=== PATIENT | female | born 1985 | race Caucasian/White ===

== ENCOUNTER 2016-07-15 20:09 | Emergency (ER) | payer MEDICAID, OTHER ==
[~2016-07-15] VITALS: Ht 165.1 cm; Wt 105.5 kg
[~2016-07-15 20:09] MED LIST: 1-ME1LIQ PO; XANA0.5T PO; ZEGE20CA PO; ZYRT10TA3 PO
[2016-07-15 20:14] VITALS: BP 155/116; PULSE 115; RESP 19; TEMP 98.9; O2SAT 100
[2016-07-15] MEDS ORDERED: CETI5TAB2 PO (20:35)
[2016-07-15] MEDS ORDERED: FLUT1SPR5 EACH NARE (20:35)
[2016-07-15] MEDS ORDERED: IBUP400T20 PO (20:35)
[2016-07-15] MEDS ORDERED: AMLO2.5T PO (20:35)
[2016-07-15] MEDS ORDERED: [UNRECOGNIZED DRUG - CODE] (20:35)
--- NOTE | 2016-07-15 20:43 | PD ---
HPI Chief Complaint: Abdominal Pain Time Seen by Provider: 20:35 Travel History International Travel<30 days: No Contact w/Intl Traveler<30days: No Traveled to known affect area: No History of Present Illness HPI This 31-year-old female complaining of possible UTI. She says she been having some left flank pain for several days. Her urine has been dark and cloudy. She has had some chills and sweats. She has had some vomiting the last couple of days. She was vomiting this morning. She had gastric bypass in 2011 and has had over 100 pound weight loss. She has a history of hypertension. She has had urinary tract infection in the past. PFSH Past Medical History Bipolar Disorder: Yes Cancer: No Cardiovascular Problems: Yes (HTN) High Cholesterol: Yes Diabetes: No Diminished Hearing: No Endocrine: No Genitourinary: No Hepatitis: No Hiatal Hernia: No Hypertension: Yes Immune Disorder: No Musculoskeletal: Yes (ARTHRITIS BACK) Neurologic: Yes (BI-POLAR) Psychiatric: No Reproductive: No Respiratory: No Immunizations Current: Yes Thyroid Disease: No ?: Not LMP: END OF JUNE Menopausal: Yes Past Surgical History Abdominal Surgery: Yes (GASTRIC BY PASS) AICD: No Joint Replacement: No Pacemaker: No Social History Alcohol Use: Yes (BOTTLE WINE NIGHTLY) Tobacco Use: No (/2 PPD) Substance Use: No Allergies-Medications (Allergen,Severity, Reaction): Coded Allergies: Penicillin (Verified Allergy, Severe, Anaphylaxis, 07/15/16) Sulfa (Verified Allergy, Severe, Anaphylaxis, 07/15/16) Erythromycin (Verified Allergy, Intermediate, RASH/HIVES, 07/15/16) Latex (Verified Allergy, Unknown, CONTACT DERMATIATIS, 07/15/16) Uncoded Allergies: MYCINS (Allergy, Intermediate, Nausea/Vomiting, 03/04/10) Reported Meds & Prescriptions Reported Meds & Active Scripts Active Zofran Odt (Ondansetron Odt) 4 Mg Tab 4 Mg SL Q6HR PRN Percocet (Oxycodone-Acetaminophen) 7.5-325 mg Tab 1 Tab PO Q4H PRN Cipro (Ciprofloxacin HCl) 500 Mg Tab 500 Mg PO BID 10 Days Reported Azo Urinary Pain Relief (Phenazopyridine HCl) 95 Mg Tab Flonase Nasal [place] (Fluticasone Nasal [place]) 50 Mcg/Act [place] 50 Mcg EACH NARE BID Cetirizine (Cetirizine HCl) 5 Mg Tab 5 Mg PO DAILY Ibuprofen 400 Mg Tab 400 Mg PO Q4H PRN Amlodipine (Amlodipine Besylate) 2.5 Mg Tab 2.5 Mg PO DAILY Review of Systems General / Constitutional: Positive: Chills Eyes: No: Diploplia, Blurred Vision HENT: No: Headaches, Vertigo Cardiovascular: No: Chest Pain or Discomfort, Palpitations Respiratory: No: Cough, Shortness of Breath Gastrointestinal: Positive: Nausea, Vomiting Genitourinary: Positive: Frequency, Flank Pain, No: Urgency Musculoskeletal: No: Myalgias, Arthralgias Skin: No Rash, No Itching Neurologic: No: Weakness, Dizziness Psychiatric: No: Anxiety, Depression Hematologic/Lymphatic: No: Easy Bruising Physical Exam Narrative GENERAL: Well-developed female SKIN: Focused skin assessment warm/dry. HEAD: Atraumatic. Normocephalic. EYES: Pupils equal and round. No scleral icterus. No injection or drainage. ENT: No nasal bleeding or discharge. Mucous membranes pink and moist. NECK: Trachea midline. No JVD. CARDIOVASCULAR: Regular rate and rhythm. No murmur appreciated. RESPIRATORY: No accessory muscle use. Clear to auscultation. Breath sounds equal bilaterally. GASTROINTESTINAL: Abdomen soft, non-tender, nondistended. Hepatic and splenic margins not palpable. There is some left flank tenderness MUSCULOSKELETAL: No obvious deformities. No clubbing. No cyanosis. No edema. NEUROLOGICAL: Awake and alert. No obvious cranial nerve deficits. Motor grossly within normal limits. Normal speech. PSYCHIATRIC: Appropriate mood and affect; insight and judgment normal. Data Data Last Documented VS Vital Signs Date Time Temp Pulse Resp B/P Pulse Ox O2 Delivery O2 Flow Rate FiO2 07/15/16 20:14 98.9 115 19 155/116 100 Orders Complete Blood Count With Diff (07/15/16 20:35) Comprehensive Metabolic Panel (07/15/16 20:35) Urinalysis - C+S If Indicated (07/15/16 20:35) Sodium Chlor 0.9% 1000 Ml Inj (Ns 1000 M (07/15/16 20:45) Hydromorphone Pf Inj (Dilaudid Pf Inj) (07/15/16 20:45) Ondansetron Inj (Zofran Inj) (07/15/16 20:45) Ceftriaxone Inj (Rocephin Inj) (07/15/16 21:15) Urine Culture (07/15/16 20:48) Labs Laboratory Tests Test 07/15/16 20:48 White Blood Count 13.8 TH/MM3 Red Blood Count 4.89 MIL/MM3 Hemoglobin 14.6 GM/DL Hematocrit 46.1 % Mean Corpuscular Volume 94.3 FL Mean Corpuscular Hemoglobin 29.9 PG Mean Corpuscular Hemoglobin 31.7 % Concent Red Cell Distribution Width 17.7 % Platelet Count 290 TH/MM3 Mean Platelet Volume 7.9 FL Neutrophils (%) (Auto) 81.4 % Lymphocytes (%) (Auto) 9.6 % Monocytes (%) (Auto) 6.9 % Eosinophils (%) (Auto) 0.7 % Basophils (%) (Auto) 1.4 % Neutrophils # (Auto) 11.2 TH/MM3 Lymphocytes # (Auto) 1.3 TH/MM3 Monocytes # (Auto) 1.0 TH/MM3 Eosinophils # (Auto) 0.1 TH/MM3 Basophils # (Auto) 0.2 TH/MM3 CBC Comment DIFF FINAL Differential Comment Urine Color YELLOW Urine Turbidity CLOUDY Urine pH 6.0 Urine Specific [place] 1.009 Urine Protein 30 mg/dL Urine Glucose (UA) NEG mg/dL Urine Ketones NEG mg/dL Urine Occult Blood LARGE Urine Nitrite POS Urine Bilirubin NEG Urine Leukocyte Esterase MOD Urine RBC 4-9 /hpf Urine WBC INNUM /hpf Urine Squamous Epithelial 0-5 /hpf Cells Urine Trichomonas PRESENT Microscopic Urinalysis Comment CULTURE INDICATED Sodium Level 139 MEQ/L Potassium Level 3.6 MEQ/L Chloride Level 103 MEQ/L Carbon Dioxide Level 27.2 MEQ/L Anion Gap 9 MEQ/L Blood Urea Nitrogen 6 MG/DL Creatinine 0.70 MG/DL Estimat Glomerular Filtration 96 ML/MIN Rate Random Glucose 92 MG/DL Calcium Level 9.0 MG/DL Total Bilirubin 0.4 MG/DL Aspartate Amino Transf 50 U/L (AST/SGOT) Alanine Aminotransferase 77 U/L (ALT/SGPT) Alkaline Phosphatase 105 U/L Total Protein 7.7 GM/DL Albumin 3.5 GM/DL [facility] Medical Decision Making Medical Screen Exam Complete: Yes Emergency Medical Condition: Yes Medical Record Reviewed: Yes Differential Diagnosis Differential includes UTI, renal colic, gastroenteritis Narrative Course White count is elevated at 13.8. Urinalysis shows innumerable white cells were 9 red cells. This is most consistent with a urinary tract infection, pyelonephritis. She has been given an initial dose of Rocephin and will be released with prescription for Percocet, Zofran and Cipro Diagnosis Primary Impression: Urinary tract infection Qualified Code: N10 - Acute pyelonephritis Scripts Ondansetron Odt (Zofran Odt)4 Mg Tab4 Mg SL Q6HR PRN (Nausea/Vomiting) #10 TAB Ref 0 Prov:Bobby Sweet MD 07/15/16 Oxycodone-Acetaminophen (Percocet)7.5-325 mg Tab1 Tab PO Q4H PRN (PAIN) #15 TAB Ref 0 Prov:Bobby Sweet MD 07/15/16 Ciprofloxacin (Cipro)500 Mg [id number] Mg PO BID 10 Days Ref 0 Prov:Bobby Sweet MD 07/15/16 Disposition: 01 DISCHARGE HOME Condition: Stable Bobby Sweet MD Jul 15, 2016 20:43
[2016-07-15] MEDS ORDERED: HYDROmorphone HCL PF 1 MG/ML VIAL IV PUSH ONE (20:45)
[2016-07-15] MEDS ORDERED: ONDANSETRON HCL 4 MG/2 ML VIAL IV PUSH ONE (20:45)
[2016-07-15] MEDS ORDERED: SODIUM CHLOR 0.9% 1000 ML INJ 1,000 ML IV ONE ×2 (20:45→23:15)
[2016-07-15 20:56] LABS: AUTOMATED NEUTROPHIL # 11.2 TH/MM3 (1.8-7.7); BASOPHIL # 0.2 TH/MM3 (0-0.2); BASOPHIL % 1.4 % (0.0-2.0); EOSINOPHIL # 0.1 TH/MM3 (0-0.4); EOSINOPHIL % 0.7 % (0.0-4.0); HEMATOCRIT 46.1 % (35.0-46.0); LYMPH % 9.6 % (9.0-44.0); LYMPHOCYTE # 1.3 TH/MM3 (1.0-4.8); MEAN CELL VOLUME 94.3 FL (80.0-100.0); MEAN CORPUSCULAR HEMOGLOBIN 29.9 PG (27.0-34.0); MEAN CORPUSCULAR HGB CONC 31.7 % (32.0-36.0); MONO % 6.9 % (0.0-8.0); NEUT % 81.4 % (16.0-70.0); PLATELET COUNT 290 TH/MM3 (150-450); RED BLOOD COUNT 4.89 MIL/MM3 (4.00-5.30); RED CELL DISTRIBUTION WIDTH 17.7 % (11.6-17.2); WHITE BLOOD COUNT 13.8 TH/MM3 (4.0-11.0)
[2016-07-15 20:57] LABS: BLOOD, URINE LARGE (NEG); GLUCOSE,URINE NEG (NEG); KETONE, URINE NEG (NEG)
[2016-07-15 21:01] LABS: NITRITE,URINE POS (NEG)
[2016-07-15 21:03] VITALS: BP 152/98; PULSE 102; RESP 17; O2SAT 96
[2016-07-15 21:04] LABS: HEMO FLAGS DIFF FINAL
[2016-07-15 21:05] LABS: CHLORIDE 103 MEQ/L (98-107); POTASSIUM 3.6 MEQ/L (3.5-5.1); SODIUM (NA) 139 MEQ/L (136-145)
[2016-07-15 21:09] LABS: ANION GAP 9 MEQ/L (5-15); BICARBONATE 27.2 MEQ/L (21.0-32.0); BLOOD UREA NITROGEN 6 MG/DL (7-18); URINE COLOR YELLOW (YELLW/STRAW)
[2016-07-15 21:11] LABS: SQUAMOUS EPITHELIAL CELL URINE 0-5 /hpf (0-5); WBC, URINE INNUM /hpf (0-5)
[2016-07-15 21:12] LABS: ALT (GPT) 77 U/L (10-53); AST (GOT) 50 U/L (15-37); COMMENT (UR) CULTURE INDICATED; CULTURE IF INDICATED CULTURE INDICATED; GLOMERULAR FILTRATION RATE 96 ML/MIN (>89)
[2016-07-15 21:13] LABS: TOTAL BILIRUBIN ADULT 0.4 MG/DL (0.2-1.0)
[2016-07-15 21:15] LABS: ALKALINE PHOSPHATASE 105 U/L (45-117)
[2016-07-15] MEDS ORDERED: cefTRIAXone INJ 1,000 MG in SODIUM CHLORIDE 0.9% INJ 100 ML IV ONE (21:15)
[2016-07-15] MEDS ORDERED: PERC7.5T13 PO (21:23)
[2016-07-15] MEDS ORDERED: ZOFR4TAB3 SL (21:23)
[2016-07-15] MEDS ORDERED: CIPR-9 PO (21:23)
[2016-07-15 21:50] VITALS: BP 162/103; PULSE 103; RESP 18; O2SAT 96
[2016-07-15 22:40] VITALS: TEMP 100.4
[2016-07-15] MEDS ORDERED: ACETAMINOPHEN 500 MG CPLT PO ONE (22:45)
[2016-07-15 23:05] VITALS: TEMP 102.3
[2016-07-15] MEDS ORDERED: IBUPROFEN 600 MG TAB PO ONE (23:15)
[2016-07-15 23:40] VITALS: BP 148/89; PULSE 105; RESP 18; TEMP 100.2; O2SAT 97
== END 2016-07-15 23:53 | disposition home or self-care (01) ==
LOC: PHED 20:09
DX: N39.0 Urinary tract infection, site not specified (principal); I10 Essential (primary) hypertension; E78.00 Pure hypercholesterolemia, unspecified; F17.210 Nicotine dependence, cigarettes, uncomplicated; R11.2 Nausea with vomiting, unspecified; B96.20 Unspecified Escherichia coli [E. coli] as the cause of diseases classified elsewhere
CPT/HCPCS: 80053; 81001; 85025; 87077; 87086; 87186; 96361; 96365; 96375; 99284; J0696; J1170; J2405; J7030

== ENCOUNTER 2016-08-11 11:02 | Emergency (ER) | payer MEDICAID ==
[~2016-08-11] VITALS: Ht 165.1 cm; Wt 101.7 kg
[~2016-08-11 11:02] MED LIST changes: -1-ME1LIQ PO; +AMLO2.5T PO; +CETI5TAB2 PO; +CIPR-9 PO; +FLUT1SPR5 EACH NARE; +IBUP400T20 PO; +PERC7.5T13 PO; -XANA0.5T PO; -ZEGE20CA PO; +ZOFR4TAB3 SL; -ZYRT10TA3 PO; +[UNRECOGNIZED DRUG - CODE]
[2016-08-11 11:06] VITALS: BP 147/106; PULSE 101; RESP 18; TEMP 98.3; O2SAT 98
[2016-08-11] MEDS ORDERED: ZEGE20CA4 PO (11:19)
[2016-08-11] MEDS ORDERED: CIPR-9 PO (11:45)
--- NOTE | 2016-08-11 11:49 | PD ---
HPI Chief Complaint: Skin Problem Time Seen by Provider: 11:20 Travel History International Travel<30 days: No Contact w/Intl Traveler<30days: No Traveled to known affect area: No History of Present Illness HPI 31-year-old female presents emergency department for evaluation of abscess on right hip 1 week. Patient reports the area started as a small erythematous pustule and has progressively got larger over the last week. She reports pain at the site, nonradiating, no alleviating or exacerbating factors. Severity 4- 10. She denies fever or chills. She reports history of abscesses in the past. Patient has multiple allergies to antibiotics and reports she's been prescribed Cipro in the past to treat them. PFSH Past Medical History Bipolar Disorder: Yes Depression: Yes Cancer: No Cardiovascular Problems: Yes (HTN) High Cholesterol: Yes Diabetes: Yes Patient Takes Glucophage: No Diminished Hearing: No Endocrine: No Genitourinary: No Hepatitis: No Hiatal Hernia: No Hypertension: Yes Immune Disorder: No Musculoskeletal: Yes (ARTHRITIS BACK) Neurologic: Yes (BI-POLAR) Psychiatric: No Reproductive: No Respiratory: No Immunizations Current: Yes Thyroid Disease: No ?: Not Menopausal: Yes Tubal Ligation: Yes Past Surgical History Abdominal Surgery: Yes (GASTRIC BY PASS) AICD: No Joint Replacement: No Pacemaker: No Other Surgery: Yes Social History Alcohol Use: Yes (4 double vodkas every night) Tobacco Use: No (1/2 PPD) Substance Use: No Allergies-Medications (Allergen,Severity, Reaction): Coded Allergies: Penicillin (Verified Allergy, Severe, Anaphylaxis, 07/15/16) Sulfa (Verified Allergy, Severe, Anaphylaxis, 07/15/16) Erythromycin (Verified Allergy, Intermediate, RASH/HIVES, 07/15/16) Latex (Verified Allergy, Unknown, CONTACT DERMATIATIS, 07/15/16) Uncoded Allergies: MYCINS (Allergy, Intermediate, Nausea/Vomiting, 03/04/10) Reported Meds & Prescriptions Reported Meds & Active Scripts Active Cipro (Ciprofloxacin HCl) 500 Mg Tab 500 Mg PO BID Reported Zegerid (Omeprazole-Sodium Bicarbonate) 20-1,100 Mg Cap 1 Cap PO DAILY Flonase Nasal [place] (Fluticasone Nasal [place]) 50 Mcg/Act [place] 50 Mcg EACH NARE BID Cetirizine (Cetirizine HCl) 5 Mg Tab 5 Mg PO DAILY Ibuprofen 400 Mg Tab 400 Mg PO Q4H PRN Amlodipine (Amlodipine Besylate) 2.5 Mg Tab 2.5 Mg PO DAILY Review of Systems Except as stated in HPI: all other systems reviewed are Neg General / Constitutional: No: Fever Eyes: No: Visual changes HENT: No: Headaches Cardiovascular: No: Chest Pain or Discomfort Respiratory: No: Shortness of Breath Gastrointestinal: No: Abdominal Pain Physical Exam Narrative GENERAL: Well-nourished, well-developed patient. SKIN: Focused skin assessment warm/dry. Small erythematous fluctuant abscess to the right posterior/lateral torso. There is no surrounding cellulitis. No drainage. HEAD: Normocephalic. EYES: No scleral icterus. No injection or drainage. NECK: Supple, trachea midline. No JVD or lymphadenopathy. CARDIOVASCULAR: Regular rate and rhythm without murmurs, gallops, or rubs. RESPIRATORY: Breath sounds equal bilaterally. No accessory muscle use. GASTROINTESTINAL: Abdomen soft, non-tender, nondistended. MUSCULOSKELETAL: No cyanosis, or edema. BACK: Nontender without obvious deformity. No CVA tenderness. Data Data Last Documented VS Vital Signs Date Time Temp Pulse Resp B/P Pulse Ox O2 Delivery O2 Flow Rate FiO2 08/11/16 11:06 98.3 101 18 147/106 98 MDM Medical Decision Making Medical Screen Exam Complete: Yes Emergency Medical Condition: Yes Differential Diagnosis Abscess, cellulitis, infected insect bite Narrative Course 31-year-old female presents emergency Department with evaluation of possible abscess on right hip 1 week. Patient reports a history of abscesses in the past. She denies fever or chills. On exam she has small fluctuant abscess in the right lower/lateral torso without surrounding cellulitis. Incision and drainage was performed. Patient tolerated procedure well. Given patient's multiple allergies to penicillins, Bactrim, clindamycin patient will be put on Cipro. Return precautions discussed. Patient verbalized understanding. She will have the wound rechecked in 1-2 days. Procedures Procedure Narrative Incision and drainage of abscess. Area was prepped with Betadine. Infiltrated with 1% lidocaine with epi. Incised with #11 blade. Abscess probed to break up loculations. A small amount of purulent drainage expressed. Patient tolerated procedure well. Sterile dressing applied to abscess. Diagnosis Primary Impression: Abscess Referrals: Primary Care Physician Scripts Ciprofloxacin (Cipro)500 Mg [id number] Mg PO BID #14 TAB Ref 0 Prov:Khushbu Duval 08/11/16 Disposition: 01 DISCHARGE HOME Condition: Stable Khushbu Duval Aug 11, 2016 11:49
== END 2016-08-11 11:54 | disposition home or self-care (01) ==
LOC: PHEFT 11:02
DX: L02.219 Cutaneous abscess of trunk, unspecified (principal); E11.9 Type 2 diabetes mellitus without complications; I10 Essential (primary) hypertension; E78.00 Pure hypercholesterolemia, unspecified; Z87.39 Personal history of other diseases of the musculoskeletal system and connective tissue; Z86.59 Personal history of other mental and behavioral disorders; Z86.79 Personal history of other diseases of the circulatory system
CPT/HCPCS: 10060

== ENCOUNTER 2017-01-19 17:11 | Emergency (ER) | payer MEDICAID ==
[~2017-01-19] VITALS: Ht 165.1 cm; Wt 102.4 kg
[~2017-01-19 17:11] MED LIST changes: +IBUP1TAB5 PO; -IBUP400T20 PO; -PERC7.5T13 PO; +ZEGE20CA4 PO; -ZOFR4TAB3 SL; -[UNRECOGNIZED DRUG - CODE]
[2017-01-19 17:15] VITALS: BP 178/113; PULSE 106; RESP 16; TEMP 98.5; O2SAT 100
[2017-01-19] MEDS ORDERED: CYCL10TA PO (18:01)
[2017-01-19] MEDS ORDERED: IBUP1TAB7 PO (18:01)
[2017-01-19] MEDS ORDERED: BENZ100 PO (18:01)
--- NOTE | 2017-01-19 18:02 | PD ---
HPI Chief Complaint: Cold / Flu Symptoms Time Seen by Provider: 17:50 Travel History International Travel<30 days: No Contact w/Intl Traveler<30days: No Traveled to known affect area: No History of Present Illness HPI 31-year-old female here for evaluation of nasal congestion, cough, sore throat 1 week. She is here with her daughter, also a patient, who has similar symptoms. She is also reporting that she fell 2 days ago after slipping on the floor hitting her head. No LOC. She denies headache, neck pain, visual changes , nausea or vomiting. Symptom severity is mild. No aggravating or alleviating factors. PFSH Past Medical History Hx Anticoagulant Therapy: No Bipolar Disorder: Yes Depression: Yes Cancer: No Cardiovascular Problems: Yes (HTN) High Cholesterol: Yes Diabetes: No Diminished Hearing: No Endocrine: No Genitourinary: No Hepatitis: No Hiatal Hernia: No Hypertension: Yes Immune Disorder: No Musculoskeletal: Yes (ARTHRITIS BACK) Neurologic: Yes (BI-POLAR) Psychiatric: No Reproductive: No Respiratory: No Immunizations Current: Yes Thyroid Disease: No Tetanus Vaccination: < 5 Years Influenza Vaccination: No ?: Not Menopausal: Yes Tubal Ligation: Yes Past Surgical History Abdominal Surgery: Yes (GASTRIC BY PASS) AICD: No Joint Replacement: No Pacemaker: No Other Surgery: Yes Social History Alcohol Use: Yes (~2 X WEEKLY) Tobacco Use: No (1/2 PPD) Substance Use: No Allergies-Medications (Allergen,Severity, Reaction): Coded Allergies: Sulfa (Sulfonamide Antibiotics) (Unverified Allergy, Severe, Anaphylaxis, 01/19/17) penicillin G (Unverified Allergy, Severe, Anaphylaxis, 01/19/17) erythromycin base (Unverified Allergy, Intermediate, RASH/HIVES, 01/19/17) latex (Unverified Allergy, Unknown, CONTACT DERMATIATIS, 01/19/17) Uncoded Allergies: MYCINS (Allergy, Intermediate, Nausea/Vomiting, 03/04/10) Reported Meds & Prescriptions Reported Meds & Active Scripts Active Reported Cetirizine (Cetirizine HCl) 5 Mg Tab 5 Mg PO DAILY Ibuprofen 400 Mg Tab 400 Mg PO Q4H PRN Amlodipine (Amlodipine Besylate) 2.5 Mg Tab 2.5 Mg PO DAILY Review of Systems Except as stated in HPI: all other systems reviewed are Neg General / Constitutional: No: Fever Eyes: No: Visual changes HENT: Positive: Congestion, No: Headaches Cardiovascular: No: Chest Pain or Discomfort Respiratory: Positive: Cough Physical Exam Narrative GENERAL: Alert female in no distress. SKIN: Warm and dry. HEAD: Normocephalic. EYES: No scleral icterus. No injection or drainage. THROAT: Mild pharyngeal erythema no tonsillar hypertrophy or exudate NECK: Supple, trachea midline. NO lymphadenopathy. No cervical midline tenderness. Left trapezius muscle spasm. CARDIOVASCULAR: Regular rate and rhythm without murmurs, gallops, or rubs. RESPIRATORY: Breath sounds equal bilaterally. No accessory muscle use. GASTROINTESTINAL: Abdomen soft, non-tender, nondistended. MUSCULOSKELETAL: No cyanosis, or edema. BACK: Nontender without obvious deformity. No CVA tenderness. Data Data Last Documented VS Vital Signs Date Time Temp Pulse Resp B/P (MAP) Pulse Ox O2 Delivery O2 Flow Rate FiO2 01/19/17 17:23 Room Air 01/19/17 17:15 98.5 106 16 178/113 (134) 100 MDM Medical Decision Making Medical Screen Exam Complete: Yes Emergency Medical Condition: Yes Differential Diagnosis URI, influenza, minor head injury, ICH Narrative Course 31-year-old female here with mild URI-like symptoms. She also reports minor head injury 2 days ago. She has left upper trapezius muscle tenderness. No cervical midline pain. She has a normal neurologic exam. She will be treated for URI. Diagnosis Primary Impression: URI (upper respiratory infection) Qualified Codes: J06.9 - Acute upper respiratory infection, unspecified Referrals: [facility] Scripts Cyclobenzaprine (Flexeril) 10 Mg Tab 10 MG PO TID for Muscle Spasm, #12 TAB 0 Refills Prov: Khushbu Duval 01/19/17 Ibuprofen (Ibuprofen) 800 Mg Tab 800 MG PO Q6HR Y for PAIN, #40 TAB 0 Refills Prov: Khushbu Duval 01/19/17 Benzonatate (Tessalon Perles) 100 Mg Cap 100 MG PO TID Y for COUGH, #12 CAP 0 Refills Prov: Khushbu Duval 01/19/17 Disposition: 01 DISCHARGE HOME Condition: Stable Khushbu Duval Jan 19, 2017 18:02
== END 2017-01-19 18:20 | disposition home or self-care (01) ==
LOC: PHEFT 17:11
DX: J06.9 Acute upper respiratory infection, unspecified (principal); S09.90XA Unspecified injury of head, initial encounter; I10 Essential (primary) hypertension; E78.00 Pure hypercholesterolemia, unspecified; W01.0XXA Fall on same level from slipping, tripping and stumbling without subsequent striking against object, initial encounter
CPT/HCPCS: 99284

== ENCOUNTER 2017-07-07 09:55 | Emergency (ER) | payer MEDICAID ==
[~2017-07-07] VITALS: Ht 165.1 cm; Wt 99.0 kg
[~2017-07-07 09:55] MED LIST changes: +BENZ100 PO; -CIPR-9 PO; +CYCL10TA PO; -FLUT1SPR5 EACH NARE; +IBUP1TAB7 PO; -ZEGE20CA4 PO
[2017-07-07 09:59] VITALS: BP 193/126; PULSE 96; RESP 16; TEMP 98.1; O2SAT 98
[2017-07-07] MEDS ORDERED: AMLO10TA2 PO (10:27)
[2017-07-07] MEDS ORDERED: TIZA4CAP3 PO (10:27)
[2017-07-07] MEDS ORDERED: MONT10TA2 PO (10:27)
[2017-07-07] MEDS ORDERED: KETOROLAC TROMETHAMINE 60 MG/2 ML (IM) VIAL IM ONE (10:30)
--- NOTE | 2017-07-07 11:29 | RADRPT ---
EXAM DATE: 07/07/2017 11:20 AM EDT AGE/SEX: 32 years / Female INDICATIONS: Upper thoracic pain. CLINICAL DATA: This is the patient's initial encounter. Patient reports that signs and symptoms have been present for 1 day and indicates a pain score of 8/10. MEDICAL/SURGICAL HISTORY: None. None. COMPARISON: No prior [facility] exams available for comparison. FINDINGS: The vertebral bodies are in normal alignment without evidence of compression deformity Bone density is normal for age. Soft tissues are grossly intact. CONCLUSION: Unremarkable thoracic spine Electronically signed by: Shon Preston MD 07/07/2017 11:27 AM EDT
[2017-07-07] MEDS ORDERED: ROBA750T PO (11:34)
--- NOTE | 2017-07-07 11:34 | PD ---
HPI Chief Complaint: Musculoskeletal Complaint Time Seen by Provider: 10:21 Travel History International Travel<30 days: No Contact w/Intl Traveler<30days: No Traveled to known affect area: No History of Present Illness HPI This is a 32-year-old female here with mid back pain 1 week. She reports a history of herniated disc in her neck and low back. She cannot recall specific injury or trauma. Denies fever chills. No incontinence. No saddle anesthesia. No paresthesia or weakness of the extremities. No history of IV drug use. Pain is intermittent, mild to moderate severity, worse with movement and slightly relieved with rest. PFSH Past Medical History Hx Anticoagulant Therapy: No Bipolar Disorder: Yes Depression: Yes Cancer: No Cardiovascular Problems: Yes (HTN) High Cholesterol: Yes Diabetes: No Diminished Hearing: No Endocrine: No Genitourinary: No Hepatitis: No Hiatal Hernia: No Hypertension: Yes Immune Disorder: No Musculoskeletal: Yes (CHRONIC BACK PAIN) Neurologic: Yes (BI-POLAR) Psychiatric: No Reproductive: No Respiratory: No Immunizations Current: Yes Thyroid Disease: No ?: Not LMP: TUBAL Menopausal: Yes Tubal Ligation: Yes Past Surgical History Abdominal Surgery: Yes (GASTRIC BY PASS) AICD: No Joint Replacement: No Pacemaker: No Other Surgery: Yes Social History Alcohol Use: Yes (DAILY) Tobacco Use: Yes (1PPD) Substance Use: No Allergies-Medications (Allergen,Severity, Reaction): Coded Allergies: Sulfa (Sulfonamide Antibiotics) (Unverified Allergy, Severe, Anaphylaxis, 07/07/17) penicillin G (Unverified Allergy, Severe, Anaphylaxis, 07/07/17) erythromycin base (Unverified Allergy, Intermediate, RASH/HIVES, 07/07/17) latex (Unverified Allergy, Unknown, CONTACT DERMATIATIS, 07/07/17) Uncoded Allergies: MYCINS (Allergy, Intermediate, Nausea/Vomiting, 03/04/10) Reported Meds & Prescriptions Reported Meds & Active Scripts Active Ibuprofen 800 Mg Tab 800 Mg PO Q6HR PRN Reported Tizanidine (Tizanidine HCl) 4 Mg Cap 4 Mg PO TID Singulair (Montelukast Sodium) 10 Mg Tab 10 Mg PO HS Amlodipine (Amlodipine Besylate) 10 Mg Tab 10 Mg PO DAILY Review of Systems Except as stated in HPI: all other systems reviewed are Neg General / Constitutional: No: Fever Eyes: No: Visual changes HENT: No: Headaches Cardiovascular: No: Chest Pain or Discomfort Respiratory: No: Shortness of Breath Gastrointestinal: No: Abdominal Pain Neurologic: No: Weakness Physical Exam Narrative GENERAL: Alert and well-appearing 32-year-old female. Ambulating with a steady gait SKIN: Warm and dry. HEAD: Normocephalic. EYES: No scleral icterus. No injection or drainage. NECK: Supple, trachea midline. CARDIOVASCULAR: Regular rate and rhythm without murmurs, gallops, or rubs. RESPIRATORY: Breath sounds equal bilaterally. No accessory muscle use. GASTROINTESTINAL: Abdomen soft, non-tender, nondistended. MUSCULOSKELETAL: No cyanosis, or edema. BACK: +TTP thoracic spine and paravertebral musculature. No deformity. No CVA tenderness. Data Data Last Documented VS Vital Signs Date Time Temp Pulse Resp B/P (MAP) Pulse Ox O2 Delivery O2 Flow Rate FiO2 07/07/17 09:59 98.1 96 16 193/126 (148) 98 Orders Orders Spine, Thoracic-Ap/Lat/Sw(3vw) (07/07/17 ) Ketorolac Inj (Toradol Inj) (07/07/17 10:30) MDM Medical Decision Making Medical Screen Exam Complete: Yes Emergency Medical Condition: Yes Differential Diagnosis Thoracic strain, herniated disc, thoracic spine fracture Narrative Course 32-year-old female here with back pain. She has a normal neurologic exam. X- rays negative for fracture. She was given a shot of Toradol and reports symptom improvement. She was stable and ready for discharge Diagnosis Primary Impression: Strain of thoracic region Qualified Codes: S29.019A - Strain of muscle and tendon of unspecified wall of thorax, initial encounter Referrals: Primary Care Physician Additional Instructions: Medication as directed. Follow-up with her primary doctor. Scripts Methocarbamol (Robaxin) 750 Mg Tab 750 MG PO QID for Muscle Spasm, #12 TAB 0 Refills Prov: Khushbu Duval 07/07/17 Disposition: 01 DISCHARGE HOME Condition: Stable Khushbu Duval July 07, 2017 11:34
== END 2017-07-07 11:40 | disposition home or self-care (01) ==
LOC: PHEFT 09:55
DX: S29.012A Strain of muscle and tendon of back wall of thorax, initial encounter (principal); X58.XXXA Exposure to other specified factors, initial encounter; F31.9 Bipolar disorder, unspecified; I10 Essential (primary) hypertension; E78.00 Pure hypercholesterolemia, unspecified; F17.200 Nicotine dependence, unspecified, uncomplicated
CPT/HCPCS: 72072; 96372; 99283; J1885